=== PATIENT | male | born 1965 | race Caucasian/White ===

== ENCOUNTER 2018-02-15 21:28 | Emergency (ER) | payer MEDICAID, OTHER ==
[~2018-02-15] VITALS: Ht 172.7 cm; Wt 68.0 kg
[~2018-02-15 21:28] MED LIST: ESCI20TA PO; PANT20TA2 PO
[2018-02-15 21:34] VITALS: BP 119/71
[2018-02-15] MEDS ORDERED: ibuprofen tablet 400 MG TABLET PO ONE (22:00)
== END 2018-02-15 23:02 | disposition home or self-care (01) ==
LOC: ER 21:29
DX: S80.812A Abrasion, left lower leg, initial encounter (principal); Z79.899 Other long term (current) drug therapy; W31.89XA Contact with other specified machinery, initial encounter; Y93.89 Activity, other specified; Y92.89 Other specified places as the place of occurrence of the external cause; Y99.8 Other external cause status
CPT/HCPCS: 73610; 99284

== ENCOUNTER 2018-02-18 08:35 | Emergency (ER) | payer OTHER ==
[~2018-02-18] VITALS: Ht 170.2 cm; Wt 68.0 kg
[2018-02-18 08:38] VITALS: BP 111/58
== END 2018-02-18 08:54 | disposition home or self-care (01) ==
LOC: ER 08:36
DX: S80.812D Abrasion, left lower leg, subsequent encounter (principal); Z79.899 Other long term (current) drug therapy; W31.89XD Contact with other specified machinery, subsequent encounter
CPT/HCPCS: 99281

== ENCOUNTER 2020-06-25 13:26 | Inpatient (IN) | payer BC, MEDICAID ==
[~2020-06-25] VITALS: Ht 170.2 cm; Wt 77.3 kg
[2020-06-25] MEDS ORDERED: aspirin 81mg tab.chew PO ONE (14:05)
[2020-06-25] MEDS ORDERED: nitroGLYCERIN 0.4mg SUBLingual tab SL PRN (14:05)
[2020-06-25 15:16] LABS: BASOPHILS % (AUTO) 0.5 % (0-1); EOSINOPHILS # (AUTO) 0.1 X10'3 (0-0.9); HEMATOCRIT 43.9 % (42.0-52.0); HEMOGLOBIN 14.6 g/dl (14.0-17.9); LYMPHOCYTES # (AUTO) 2.5 X10'3 (1.1-4.8); LYMPHOCYTES % (AUTO) 32.6 % (21-51); MEAN CORPUSCULAR HEMOGLOBIN 29.6 PG (27.0-31.0); MEAN CORPUSCULAR HGB CONC 33.2 g/dL (33.0-36.5); MEAN CORPUSCULAR VOLUME 89.2 FL (78-98); MEAN PLATELET VOLUME 8.2 FL (7.4-10.4); MONOCYTES # (AUTO) 0.6 X10'3 (0-0.9); MONOCYTES % (AUTO) 7.3 % (2-12); NEUTROPHILS # (AUTO) 4.5 X10'3 (1.8-7.7); NEUTROPHILS % (AUTO) 58.6 % (42-75); PLATELET COUNT 269 X10'3 (140-440); RED BLOOD COUNT 4.93 X10'6 (4.70-6.10); RED CELL DISTRIBUTION WIDTH 14.4 % (11.5-14.5); WHITE BLOOD COUNT 7.7 X10'3 (4.5-11.0)
[2020-06-25 15:28] LABS: PARTIAL THROMBOPLASTIN TIME 29 SECONDS (22-32)
[2020-06-25 15:48] LABS: ALANINE AMINOTRANSFERASE 23 U/L (12-78); ALBUMIN 3.9 G/DL (3.4-5.0); ALKALINE PHOSPHATASE 99 IU/L (46-116); ANION GAP 8 (8-16); ASPARTATE AMINO TRANSFERASE 17 U/L (10-37); BILIRUBIN,TOTAL 0.7 MG/DL (0.1-1.0); C-REACTIVE PROTEIN 0.22 MG/DL (0.0-0.5); CALCIUM 8.8 MG/DL (8.5-10.1); CHLORIDE 101 MMOL/L (99-107); CREATININE 1.16 MG/DL (0.60-1.10); FERRITIN 38 NG/ML (26-388); GLUCOSE 92 MG/DL (70-104); LACTATE DEHYDROGENASE 134 U/L (85-227); MAGNESIUM 2.1 MG/DL (1.5-2.4); POTASSIUM 4.2 MMOL/L (3.5-5.1); SODIUM 138 MMOL/L (135-145); TOTAL CARBON DIOXIDE 28.9 MMOL/L (24-32); TOTAL PROTEIN 7.8 G/DL (6.4-8.2); eGFR 65 ML/MIN
[2020-06-25 15:51] LABS: BLOOD UREA NITROGEN 16 MG/DL (7-18); BUN/CREATININE RATIO 13.8 (5.4-32.0)
[2020-06-25] MEDS ORDERED: ATOR20TA66 PO (16:41)
[2020-06-25] MEDS ORDERED: BUSP7.5T5 PO (16:41)
[2020-06-25] MEDS ORDERED: CLOP75TA35 PO (16:41)
[2020-06-25] MEDS ORDERED: EMTR1TAB24 PO (16:41)
[2020-06-25] MEDS ORDERED: ondansetron/PF 4mg/2ml inj IV PRN (17:30)
[2020-06-25] MEDS ORDERED: acetaminophen 325mg tablet PO PRN ×2 (17:30)
[2020-06-25] MEDS ORDERED: potassium CL 10mEq/100ml bag 100 ML IV PRN ×2 (17:30)
[2020-06-25] MEDS ORDERED: magnesium 2GM in 50ml NS 50 ML IV PRN (17:30)
[2020-06-25] MEDS ORDERED: magnesium Cl slow-release 64mg tablet PO PRN (17:30)
[2020-06-25] MEDS ORDERED: morphine 2 MG/ML inj. syringe IV PRN (17:30)
[2020-06-25] MEDS ORDERED: magnesium 4gm in 100ml NS 100 ML IV PRN (17:30)
[2020-06-25] MEDS ORDERED: HYDROcodone/acetaminophen 5mg/325mg tablet PO PRN (17:30)
[2020-06-25] MEDS ORDERED: potassium Cl 20 mEq SR tablet PO PRN ×2 (17:30)
[2020-06-25] MEDS ORDERED: METO-395 PO (18:14)
[2020-06-25] MEDS ORDERED: PANT40TA54 PO (18:14)
[2020-06-25] MEDS: normal saline 1000ml 1,000 ML IV SCH (19:30)
--- NOTE | 2020-06-25 19:30 | NUR ---
Patient in room MED 307. I have received report from Ozzy GARG and had the opportunity to ask questions and assume patient care.
[2020-06-25 19:45] VITALS: BP 116/73
[2020-06-25] MEDS: docusate sod 100mg capsule PO SCH (20:00)
[2020-06-25] MEDS: K and/or MAG REPLACEMENT MC SCH (20:00)
[2020-06-25] MEDS: busPIRone 15mg tablet PO SCH (20:31)
[2020-06-25] MEDS ORDERED: temazepam 15mg capsule PO PRN (21:00)
[2020-06-25 22:00] VITALS: BP 119/72
--- NOTE | 2020-06-25 22:35 | NUR ---
called regarding patient status. He wanted to know what the future plans were with the patient. I explained that the patient was going to be seen by Dr. Linder tomorrow morning to get an eval per report. wanted to speak to hospitalist. I notified that I will notify hospitalist. Dr. Wood's number is [phone].
--- NOTE | 2020-06-25 22:41 | NUR ---
PAGER ID: [phone] MESSAGE: Edward Curran 55 M, admitted with chest pain, has a order entry, Dr. Barton who wants to speak to the hospitalist. Would you be willing to speak to him? Thank you
--- NOTE | 2020-06-25 22:53 | NUR ---
at [id number] Barton updating him that all notes are in the chart from him and also that I had contacted the nighttime hospitalist. I let the doctor know that the nighttime hospitalist was not the same as the daytime hospitalist. The doctor said he did not need to speak to her anymore. He told me to put a note on the folder and let Dr. Susan Mccloud know that he may call him at [phone] if he has any questions.
--- NOTE | 2020-06-25 22:55 | NUR ---
at [address] Morales and she was requesting more information on the page I sent. I explained the previous conversations that I had with Dr. Barton, as I have charted above. I told her that Dr. Barton no longer needed to speak to the hospitalist.
[2020-06-26 02:00] VITALS: BP 106/54
[2020-06-26 02:42] LABS: ALANINE AMINOTRANSFERASE 21 U/L (12-78); ALBUMIN 3.3 G/DL (3.4-5.0); ALKALINE PHOSPHATASE 79 IU/L (46-116); ANION GAP 7 (8-16); ASPARTATE AMINO TRANSFERASE 10 U/L (10-37); BILIRUBIN,TOTAL 0.8 MG/DL (0.1-1.0); BLOOD UREA NITROGEN 15 MG/DL (7-18); BUN/CREATININE RATIO 12.2 (5.4-32.0); CALCIUM 8.5 MG/DL (8.5-10.1); CHLORIDE 107 MMOL/L (99-107); CREATININE 1.23 MG/DL (0.60-1.10); GLUCOSE 141 MG/DL (70-104); POTASSIUM 3.8 MMOL/L (3.5-5.1); SODIUM 141 MMOL/L (135-145); TOTAL CARBON DIOXIDE 26.6 MMOL/L (24-32); TOTAL PROTEIN 6.6 G/DL (6.4-8.2); eGFR 61 ML/MIN
[2020-06-26 02:45] LABS: CHOL/HDL RATIO 2.6 (0.00-4.99); CHOLESTEROL 106 MG/DL (0-200); HDL CHOLESTEROL 41 MG/DL (35-60); LDL CHOLESTEROL 59 MG/DL (50-100); MAGNESIUM 2.3 MG/DL (1.5-2.4); TRIGLYCERIDES 44 MG/DL (20-135)
[2020-06-26 02:47] LABS: BASOPHILS % (AUTO) 0.5 % (0-1); EOSINOPHILS # (AUTO) 0.1 X10'3 (0-0.9); EOSINOPHILS % (AUTO) 1.7 % (0-6); HEMATOCRIT 41.1 % (42.0-52.0); HEMOGLOBIN 13.6 g/dl (14.0-17.9); LYMPHOCYTES # (AUTO) 2.6 X10'3 (1.1-4.8); MEAN CORPUSCULAR HEMOGLOBIN 29.5 PG (27.0-31.0); MEAN CORPUSCULAR HGB CONC 33.2 g/dL (33.0-36.5); MEAN CORPUSCULAR VOLUME 88.8 FL (78-98); MEAN PLATELET VOLUME 8.4 FL (7.4-10.4); MONOCYTES # (AUTO) 0.6 X10'3 (0-0.9); MONOCYTES % (AUTO) 9.8 % (2-12); NEUTROPHILS # (AUTO) 2.9 X10'3 (1.8-7.7); PLATELET COUNT 241 X10'3 (140-440); RED BLOOD COUNT 4.63 X10'6 (4.70-6.10); RED CELL DISTRIBUTION WIDTH 14.6 % (11.5-14.5); WHITE BLOOD COUNT 6.2 X10'3 (4.5-11.0)
[2020-06-26 06:00] VITALS: BP 119/69
--- NOTE | 2020-06-26 06:15 | NUR ---
Problems reprioritized. Patient report given, questions answered & plan of care reviewed with Miguel GARG.
--- NOTE | 2020-06-26 06:54 | NUR ---
Patient in room MED 307. I have received report from Tigist GARG and had the opportunity to ask questions and assume patient care.
[2020-06-26] MEDS: busPIRone 15mg tablet PO SCH (07:19)
[2020-06-26] MEDS: docusate sod 100mg capsule PO SCH (07:23)
[2020-06-26] MEDS ORDERED: nitroGLYCERIN-Tridil 50MG/D5W 250 ML IV ONE (07:28)
[2020-06-26] MEDS ORDERED: verapamil 2.5 mg/ml inj IV ONE (07:28)
[2020-06-26] MEDS ORDERED: midazolam 2 mg/2 ml injection ONE (07:28)
[2020-06-26] MEDS ORDERED: fentaNYL/PF 50MCG/1 ML 2ML syringe ONE (07:29)
[2020-06-26] MEDS ORDERED: heparin 1,000unit/ml 10ml vial 10 ML ONE (07:29)
[2020-06-26] MEDS ORDERED: iohexol 350MG/ML 100ml bottle IV ONE (07:29)
[2020-06-26] MEDS ORDERED: LIDOcaine 1% (10mg/ml)w/preservative injection 20ml MDV ONE (07:29)
[2020-06-26] MEDS: normal saline 1000ml 1,000 ML IV SCH (07:48)
[2020-06-26] MEDS ORDERED: emtricitabine/tenofovir 200mg/300mg tablet PO SCH (08:00)
[2020-06-26] MEDS ORDERED: pantoprazole 40mg Tablet.DR PO SCH (08:00)
[2020-06-26] MEDS: heparin, porcine 5000 units/ml vial SQ SCH ×2 (08:00)
[2020-06-26] MEDS: K and/or MAG REPLACEMENT MC SCH (08:00)
[2020-06-26] MEDS ORDERED: atorvastatin 20mg tablet PO SCH (08:00)
[2020-06-26] MEDS ORDERED: clopidogrel 75mg tablet PO SCH (08:00)
[2020-06-26] MEDS ORDERED: metoprolol succinate 25mg (24-HOUR) SR. Tablet PO SCH (08:00)
[2020-06-26] MEDS ORDERED: iohexol 350 MG/ML 50ML vial IV ONE ×3 (08:17→08:53)
[2020-06-26] MEDS ORDERED: aspirin 81mg tablet.DR PO SCH (08:30)
[2020-06-26] MEDS ORDERED: ticagrelor 90mg tablet ONE (08:58)
--- NOTE | 2020-06-26 09:27 | NUR ---
PAGER ID: [phone] MESSAGE: [phone] Edward Curran: Pt is back from [employer], received stent to mid LAD through radial approach. thanks garcía
[2020-06-26] MEDS ORDERED: HYDROcodone/acetaminophen 5mg/325mg tablet PO PRN (09:30)
[2020-06-26] MEDS ORDERED: HYDROcodone/acetaminophen 10/325mg tab PO PRN (09:30)
[2020-06-26] MEDS ORDERED: OXAZEpam 15mg capsule PO PRN (09:30)
[2020-06-26] MEDS ORDERED: nitroGLYCERIN 0.4mg SUBLingual tab SL PRN (09:30)
[2020-06-26] MEDS ORDERED: proCHLORperazine 10 MG/2 ml inj IV PRN (09:30)
[2020-06-26 11:00] VITALS: BP 134/79
[2020-06-26 15:00] VITALS: BP 125/77
--- NOTE | 2020-06-26 16:13 | NUR ---
PAGER ID: [phone] MESSAGE: Edward Vora: Pt denies any complains s/p cath, will he be discharging soon? garcía [phone]
[2020-06-26] MEDS ORDERED: ASPI-1071 PO (16:26)
[2020-06-26] MEDS ORDERED: TICA90TA PO (16:26)
--- NOTE | 2020-06-26 17:56 | NUR ---
pt is stable for discharge per md orders, discharge instructions reviewed w/ pt and all questions answered, new medication prescriptions called in to [facility] per pt preference, cath site no complications, piv dc'ed intact, pt discharges to home at 1700, walked down to lobby with hospital staff to private vehicle with family members, all belongings w/ pt at time of discharge
== END 2020-06-26 17:30 | disposition home or self-care (01) | DRG 175 ==
LOC: ER 13:26 → ED HOLD 17:26 → MED 3N 19:25
PROVIDERS: ADMIT Internal Medicine; ATTEND Internal Medicine
PROC: 4A023N7 Measurement of Cardiac Sampling and Pressure, Left Heart, Percutaneous Approach (ICD-10-PCS; principal; 2020-06-26)
PROC: B2111ZZ Fluoroscopy of Multiple Coronary Arteries using Low Osmolar Contrast (ICD-10-PCS; 2020-06-26)
PROC: 027034Z Dilation of Coronary Artery, One Artery with Drug-eluting Intraluminal Device, Percutaneous Approach (ICD-10-PCS; 2020-06-26)
DX: I25.110 Atherosclerotic heart disease of native coronary artery with unstable angina pectoris (principal); I24.9 Acute ischemic heart disease, unspecified; E78.00 Pure hypercholesterolemia, unspecified; E78.5 Hyperlipidemia, unspecified; F12.90 Cannabis use, unspecified, uncomplicated; I12.9 Hypertensive chronic kidney disease with stage 1 through stage 4 chronic kidney disease, or unspecified chronic kidney disease; N18.9 Chronic kidney disease, unspecified; Z20.828 Contact with and (suspected) exposure to other viral communicable diseases; I25.2 Old myocardial infarction
CPT/HCPCS: 36415; 71045; 80053; 80061; 82728; 83615; 83735; 83880; 84145; 84484; 85025; 85384; 85610; 85730; 86140; 87081; 87635; 93005; 93458; 99152; 99153; 99285; A4620; C1725; C1751; C1769; C1874; C1894; C9600; C9803; G0378; J1644; J2001; J2250; J2405; J3010; J3490; J7030; Q9967